=== PATIENT | female | born 2000 | race African-American/Black ===

== ENCOUNTER 2021-10-05 17:06 | Emergency (ER) | payer OTHER ==
[~2021-10-05] VITALS: Ht 165.1 cm; Wt 72.6 kg
[2021-10-05] MEDS ORDERED: IBUPROFEN 600 MG TABLET ONE (17:56)
[2021-10-05] MEDS ORDERED: HYDROCODONE/APAP 5-325MG TABLET ONE (17:56)
[2021-10-05] MEDS: IBUPROFEN 600 MG TABLET PO ONE (17:58)
[2021-10-05] MEDS: HYDROCODONE/APAP 5-325MG TABLET PO ONE (17:59)
[2021-10-05] MEDS ORDERED: HYDR-4209 PO (17:59)
[2021-10-05] MEDS ORDERED: IBUP-1955 PO (17:59)
--- NOTE | 2021-10-05 18:21 | NUR ---
Patient discharged to home in stable condition. Written and verbal after care instructions given. Patient verbalizes understanding of instructions. Stressed follow up or return to ER for worsening s/s.
[2021-10-05 18:22] VITALS: BP 122/80
== END 2021-10-05 18:23 | disposition home or self-care (01) ==
LOC: ER 17:11
DX: T23.262A Burn of second degree of back of left hand, initial encounter (principal); T23.261A Burn of second degree of back of right hand, initial encounter; Z79.1 Long term (current) use of non-steroidal anti-inflammatories (NSAID); Z79.899 Other long term (current) drug therapy; V49.9XXA Car occupant (driver) (passenger) injured in unspecified traffic accident, initial encounter; Y93.89 Activity, other specified; Y92.89 Other specified places as the place of occurrence of the external cause; Y99.8 Other external cause status
CPT/HCPCS: A4663

== ENCOUNTER 2022-04-07 17:33 | Emergency (ER) | payer OTHER ==
[~2022-04-07] VITALS: Ht 165.1 cm; Wt 74.8 kg
[~2022-04-07 17:33] MED LIST: HYDR-4209 PO; IBUP-1955 PO
--- NOTE | 2022-04-07 19:01 | NUR ---
Nursing SBAR to relief charge nurse Albert, pending available ER room and nurse still
--- NOTE | 2022-04-08 02:31 | NUR ---
Patient left without being seen. Not in waiting room or outside department.
== END 2022-04-08 02:32 | disposition left against medical advice (07) ==
LOC: ER 17:47
DX: Z53.21 Procedure and treatment not carried out due to patient leaving prior to being seen by health care provider (principal)